=== PATIENT | male | born 1975 | race Caucasian/White ===

== ENCOUNTER 2020-06-08 17:32 | Emergency (ER) | payer BC, SELFPAY ==
--- NOTE | 2020-06-08 17:36 | XRR_ITS ---
PROCEDURE INFORMATION: Exam: XR Chest, 1 View Exam date and time: 06/08/2020 5:37 PM Age: 45 years old Clinical indication: Fever; Patient HX: Recent knee surgery TECHNIQUE: Imaging protocol: XR of the chest Views: 1 view. COMPARISON: No relevant prior studies available. FINDINGS: Lungs: Unremarkable. No consolidation. Pleural space: Unremarkable. No pleural effusion. No pneumothorax. Heart/Mediastinum: Unremarkable. No cardiomegaly. Bones/joints: Mild scoliotic curvature. XR/XR chest 1V portable [id number] IMPRESSION: Nonacute.
[2020-06-08 17:37] VITALS: BP 110/76; PULSE 95; RESP 18; TEMP 37.2; O2SAT 93; BMI 36.5
--- NOTE | 2020-06-08 17:48 | W.ED.ABDPA2 ---
HPI - Abdominal Pain General: Chief Complaint: Nausea/Vomiting/Diarrhea Stated Complaint: NAUSEA, WEAK, S/P KNEE SURGERY X 2 WEEKS Time Seen by Provider: 06/08/20 17:48 History of Present Illness: HPI narrative: Patient is a 45-year-old male who comes to the ED with nausea and fatigue. Approximately 2 weeks ago patient had total right knee replacement surgery. He has had no complications with his right knee and healing and pain is well under control. Patient says for the past 5 days or so he has had no appetite, feels nauseous and fatigued. Reports hardly eating much food at all for the past couple days and whenever he does eat something that makes his nausea worse. He states that he has had normal bowel movements and denies taking any extra narcotic pain meds. He says he has been sleeping a lot over the past couple days and when he gets up and moves around he feels lightheaded. Denies chest pain, fever, chills, shortness of breath or emesis. Patient was put on Eliquis for 30 days right after surgery due to past history of blood clot in right calf back in 1999. Patient says he stopped taking his Eliquis 3 days ago, because he thought it might have been causing his symptoms. Patient says ever since stopping Eliquis he said no change in symptoms. Associated Symptoms: Reports nausea; Denies chills, constipation, diarrhea, dysuria, fever(s), hematochezia, hematuria and vomiting Review of Systems Const: Reports: fatigue; Denies: fever(s) or chills Eyes: Denies: change in vision or eye discomfort ENMT: Denies: throat pain, odynophagia, nasal discharge or nasal congestion Card: Reports: lightheadedness; Denies: chest pain, palpitations, edema, swelling of feet/ankles, dyspnea on exertion or orthopnea Resp: Denies: dyspnea, productive cough or non-productive cough GI: Reports: nausea; Denies: abdominal pain, vomiting, diarrhea, constipation or hematochezia : Denies: flank pain, difficulty urinating, dysuria or hematuria Musc: Denies: neck pain, back pain or extremity swelling Skin/Breast: Denies: rash or new lesions Neuro: Denies: headache(s), numbness in extremities or weakness in extremities Physical Exam Const: COMMON NORMALS: patient oriented x3 and alert GENERAL APPEARANCE: cooperative and comfortable HENMT: COMMON NORMALS: normocephalic HEAD & SCALP: normocephalic MOUTH: moist mucous membranes abnormal (mild dehydration) THROAT: posterior oropharynx normal and uvula midline Eye: COMMON NORMALS: Equal, round and reactive pupils present PUPIL: Yes Equal, round and reactive pupils present Neck/C-Spine: COMMON NORMALS: supple GENERAL: Yes normal visual inspection Resp: COMMON NORMALS: normal respiratory effort, No retractions, No use of accessory muscles and clear to auscultation bilaterally AUSCULTATION: clear to auscultation bilaterally Cardio: COMMON NORMALS: regular rate, regular rhythm, S1 normal heart sound present, S2 normal heart sound present, No gallops present (Cardio), No clicks present (Cardio), No murmurs present (Cardio) and Peripheral pulses 2+ throughout RATE: regular rate RHYTHM: regular rhythm HEART SOUNDS: S1 normal heart sound present and S2 normal heart sound present PERIPHERAL PULSES: Peripheral pulses 2+ throughout GI: COMMON NORMALS: Soft to palpation, non-tender and no masses AUSCULTATION: Yes Hypoactive bowel sounds present PALPATION: Yes Soft to palpation : COMMON NORMALS: Yes no CVA tenderness BLADDER/KIDNEY EXAM: Yes no CVA tenderness Back/Pelvis: COMMON NORMALS: no CVA tenderness Extremity: COMMON NORMALS: no pedal edema NARRATIVE EXTREMITY EXAM: Patient's right knee has surgical incision site from total knee replacement. Surgical site is healing normally and looks really good. No dehiscence, bleeding, erythema, warmth or purulent drainage. GENERAL: Yes normal exam except as noted Neuro: COMMON NORMALS: patient oriented x3 SENSORIUM/ORIENTATION: Yes alert GAIT: Yes Normal gait present Skin: COMMON NORMALS: no rashes or lesions noted GENERAL SKIN EXAM: no rashes or lesions noted WOUNDS: Yes surgical site (Right knee-surgical site is healing well with no drainage, bleeding or erythema seen.) Course Reevaluation(s): Reevaluation #1: Patient was given 2 L of IV fluid and Zofran to help with nausea and lightheaded symptoms. Patient's nausea improved greatly and he was able to get up and stand up without having any lightheadedness. Patient is feeling better and ready to be discharged. Time: 20:34 Vital Signs: Vital signs: Vital Signs Temperature 98.9 F 06/08/20 17:37 Pulse Rate 83 06/08/20 20:43 Respiratory Rate 18 06/08/20 20:43 Blood Pressure 138/82 06/08/20 20:43 Pulse Oximetry 94 06/08/20 20:43 MDM - Abdominal Pain MDM Narrative: Medical decision making narrative: Patient is a 45-year-old male who comes to the ED with postural lightheadedness, nausea, fatigue and decreased appetite. Patient is approximately 2 weeks postop of total right knee replacement. He is having no problems with right knee. Healing and range of motion is doing well. No erythema warmth or signs of infection right knee surgical site. Patient's mucous membranes were dry and he does a decreased oral intake for the past couple days due to the nausea. Patient states he has had normal bowel movements and denies any constipation. CBC and CMP were unremarkable. Chest x-ray and KUB showed no acute findings. EKG showed normal sinus rhythm, [address] segment elevation or depression seen. Orthostatics were normal. Patient was given 2 L of fluid and Zofran and his nausea symptoms greatly improved and he was able to eat Jell-O here on the unit without any problems. Patient was also able to stand up and says his lightheadedness had improved greatly and did not feel off balance when upright. Patient diagnosed with dehydration and postural lightheadedness due to dehydration. Return to ED precautions given. He was sent home with a prescription for Zofran to help with any nausea. Drink plenty of fluids and stay hydrated. Follow-up with PCP in 7 to 10 days. Return to ED precautions given. Patient understood and agreed with plan. Medical Records: Attestation: I reviewed the patient's medical records. Lab Data: Attestation: I reviewed the patient's lab results. Labs: Lab Results 06/08/20 06/08/20 06/08/20 Range/Units 18:07 18:07 19:05 WBC 3.3 L (4.0-10.0) 10^3/ uL RBC 4.13 (4.1-5.3) 10^6/u L Hgb 12.1 (11.7-16.6) g/dL Hct 37.4 L (42.0-52.0) % MCV 90.6 (80-94) fL MCH 29.3 (28.0-34.0) pg MCHC 32.4 (30.0-36.0) g/dL RDW 12.9 (12.1-15.1) % Plt Count 384 (130-400) 10^3/c mm MPV 8.9 (7.4-10.4) fL Neut % (Auto) 41.5 % Lymph % (Auto) 50.3 % [place] % (Auto) 7.6 % Eos % (Auto) 0.0 % Baso % (Auto) 0.3 % Neut # (Auto) 1.37 L (1.8-7.7) 10^3/u L Lymph # (Auto) 1.7 (0.8-4.8) 10^3/u L [place] # (Auto) 0.3 (0.2-0.9) 10^3/u L Eos # (Auto) 0.0 (0.0-0.8) 10^3/u L Baso # (Auto) 0.0 (0.0-0.1) 10^3/u L Nucleated RBC % (a uto) 0 % Nucleated RBCs # 0.0 /100WBC Sodium 133 L (136-145) mmol/L Potassium 4.3 (3.5-5.1) mmol/L Chloride 97 L (98-107) mmol/L Carbon Dioxide 24 (22-29) mmol/L Anion Gap 16.3 (5-19) BUN 9 (6-20) mg/dL Creatinine 0.8 (0.7-1.2) mg/dL GFR Calculation 104.1 (90-130) mL/min Glucose 134 H (65-115) mg/dL Calculated Osmolal ity 277 L (285-295) mOsm/k g Calcium 8.8 (8.5-10.5) mg/dL Total Bilirubin 0.5 (0.15-1.2) mg/dL AST 52 H (0-40) U/L ALT 50 H (0-41) U/L Alkaline Phosphata se 176 H (40-130) IU/L Total Protein 7.1 (6.6-8.7) g/dL Albumin 3.6 (3.5-5.2) g/dL Globulin 3.5 (1.3-4.6) g/dL Urine Color Yellow (Yellow) Urine Appearance Clear (CLEAR) Urine pH 6 (5-7) Ur Specific Gravit y 1.010 (1.005-1.030) Urine Protein Neg (Negative) Urine Glucose (UA) Norm (Normal) Urine Ketones Negative (Negative) Urine Blood Neg (Negative) Urine Nitrate Negative (Negative) Urine Bilirubin Neg (Negative) Urine Urobilinogen Norm (Negative) mg/dL Ur Leukocyte Brea ase Negative (Negative) Imaging Data ^: CXR: Attestation: I personally reviewed and interpreted this imaging study as follows: Radiologist's impression: [place] [address] XRay Report Signed Patient: Tomi Newman Unit #: [id number] : 1975 Age/Sex: 45 / M ADM Date: 06/08/20 Loc: ER Room/Bed: Attending Dr: Ordering Provider/Ordering MD: Haris Alvarez MD Date of Service: 06/08/20 Procedure(s): XR chest 1V portable [id number] Accession Number(s): [id number] Report Number: [id number] PROCEDURE INFORMATION: Exam: XR Chest, 1 View Exam date and time: 06/08/2020 5:37 PM Age: 45 years old Clinical indication: Fever; Patient HX: Recent knee surgery TECHNIQUE: Imaging protocol: XR of the chest Views: 1 view. COMPARISON: No relevant prior studies available. FINDINGS: Lungs: Unremarkable. No consolidation. Pleural space: Unremarkable. No pleural effusion. No pneumothorax. Heart/Mediastinum: Unremarkable. No cardiomegaly. Bones/joints: Mild scoliotic curvature. XR/XR chest 1V portable [id number] IMPRESSION: Nonacute. Dictated By: Bj Bridges Signed By: Bj Bridges Signed Date/Time: 06/08/201909 DD/ 07 KUB: Attestation: I personally reviewed and interpreted this imaging study as follows: Radiologist's impression: [address] [address] XRay Report Signed Patient: Tomi Newman Unit #: [id number] : 1975 Age/Sex: 45 / M ADM Date: 06/08/20 Loc: ER Room/Bed: Attending Dr: Ordering Provider/Ordering MD: Fuentes Nair Date of Service: 06/08/20 Procedure(s): XR KUB portable [id number] Accession Number(s): [id number] Report Number: [id number] PROCEDURE INFORMATION: Exam: XR Abdomen, 1 View Exam date and time: 06/08/2020 6:06 PM Age: 45 years old Clinical indication: Nausea; Patient HX: Recent knee surgery TECHNIQUE: Imaging protocol: XR of the abdomen. Views: Frontal supine view of the abdomen. 1 View. COMPARISON: No relevant prior studies available. FINDINGS: Gastrointestinal tract: Normal. No bowel dilation. Bones/joints: Mild scoliotic curvature. Age-appropriate degenerative disease. XR/XR KUB portable [id number] IMPRESSION: Nonacute. Dictated By: Bj Bridges Signed By: jB Bridges Signed Date/Time: 06/08/201909 DD/ 08 EKG Data ^: EKG 1: Attestation: I personally reviewed and interpreted this EKG as follows: EKG interpretation date: 06/08/20 EKG interpretation time: 19:17 Interpretation: Normal sinus rhythm, 84 bpm, no ST segment elevation or depression seen. Discharge Plan Discharge Patient Disposition: Home Clinical Impression: Dehydration determined by examination, Postural lightheadedness Condition: Stable Prescriptions: New ondansetron 4 mg tablet,disintegrating 4 mg PO Q8H Qty: 20 RF: 0 Discharge Orders: Discharge Order (Routine); Ordered 06/08/20 Ordered By: Fuentes Nair Referrals: Gautam Perez DO [Primary Care Provider] - Discharge Diet: Advance as tolerated and Clear Liquid Discharge Activity: Increase activity as tolerated and Use walker/crutches as instructed Activity Restrictions/Additional Instructions: Follow-up with medical provider as directed. Take medications as prescribed. Drink plenty of fluids and stay hydrated. Take the Zofran before eating to help with nausea. Return to the ER or your medical provider if condition worsens. Please read and understand discharge instructions. If any questions, please ask. Discharge Date/Time: 06/08/20 20:44 Coding Level of Care Code ED Freight And Passenger Agent for Chg Fwd Exam Comprehensive
--- NOTE | 2020-06-08 18:05 | XRR_ITS ---
PROCEDURE INFORMATION: Exam: XR Abdomen, 1 View Exam date and time: 06/08/2020 6:06 PM Age: 45 years old Clinical indication: Nausea; Patient HX: Recent knee surgery TECHNIQUE: Imaging protocol: XR of the abdomen. Views: Frontal supine view of the abdomen. 1 View. COMPARISON: No relevant prior studies available. FINDINGS: Gastrointestinal tract: Normal. No bowel dilation. Bones/joints: Mild scoliotic curvature. Age-appropriate degenerative disease. XR/XR KUB portable [id number] IMPRESSION: Nonacute.
[2020-06-08] MEDS: sodium chloride 0.9% 1,000 ML 999 ML IV ×2 (18:10→19:26)
[2020-06-08] MEDS: ondansetron 2 mg/ML SDV 2 mL 4 MG IVP ×2 (18:10→20:22)
[2020-06-08 18:13] LABS: Basophils % 0.3 %; Hematocrit 37.4 % (42.0-52.0); Hemoglobin 12.1 g/dL (11.7-16.6); Lymphocytes # 1.7 10^3/uL (0.8-4.8); Lymphocytes % 50.3 %; Mean Corpuscular HGB Conc 32.4 g/dL (30.0-36.0); Mean Corpuscular Hemoglobin 29.3 pg (28.0-34.0); Mean Corpuscular Volume 90.6 fL (80-94); Mean Platelet Volume 8.9 fL (7.4-10.4); Monocytes # 0.3 10^3/uL (0.2-0.9); Monocytes % 7.6 %; Neutrophils # 1.37 10^3/uL (1.8-7.7); Neutrophils % 41.5 %; Nucleated Red Blood Cells % 0 %; Platelet Count 384 10^3/cmm (130-400); Red Blood Count 4.13 10^6/uL (4.1-5.3); Red Cell Distribution Width 12.9 % (12.1-15.1); White Blood Count 3.3 10^3/uL (4.0-10.0)
--- NOTE | 2020-06-08 18:13 | ECG_ITS ---
[facility] Test Date: 2020-06-08 Pat Name: Tomi Newman Department: Room: Gender: Male Customer Support Technician: : 1975 Requested By: Fuentes Nair Order Number: [id number] Morse MD: Art Escamilla M.D. Measurements Intervals [place] Rate: 84 P: 46 MO: 145 QRS: 37 QRSD: 98 T: 29 QT: 367 QTc: 435 Interpretive Statements SINUS RHYTHM INCOMPLETE RIGHT BUNDLE BRANCH BLOCK [90+ ms QRS DURATION, TERMINAL R IN V1/V2, 40+ ms S IN I/aVL/V4/V5/V6] No previous ECG available for comparison Electronically Signed On 06-09-2020 21:36:24 CDT by Art Escamilla M.D. [id number] f
[2020-06-08 18:30] LABS: Alanine Aminotransferase 50 U/L (0-41); Albumin Level 3.6 g/dL (3.5-5.2); Alkaline Phosphatase 176 IU/L (40-130); Anion Gap 16.3 (5-19); Aspartate Amino Transferase 52 U/L (0-40); Blood Urea Nitrogen 9 mg/dL (6-20); Calcium 8.8 mg/dL (8.5-10.5); Carbon Dioxide 24 mmol/L (22-29); Chloride 97 mmol/L (98-107); Globulin 3.5 g/dL (1.3-4.6); Glomerular Filtration Rate 104.1 mL/min (90-130); Glucose 134 mg/dL (65-115); Osmolality Calculated 277 mOsm/kg (285-295); Potassium 4.3 mmol/L (3.5-5.1); Sodium 133 mmol/L (136-145); Total Bilirubin 0.5 mg/dL (0.15-1.2); Total Protein 7.1 g/dL (6.6-8.7)
[2020-06-08 19:17] LABS: Add Urine Microscopic? NO
[2020-06-08 19:31] LABS: Bilirubin Urine Neg (Negative); Blood Urine Neg (Negative); Glucose Urine UA Norm (Normal); Ketones Urine Negative (Negative); Leukocyte Esterase Urine Negative (Negative); Nitrate Urine Negative (Negative); Protein Urine Neg (Negative); Urine Appearance Clear (CLEAR); Urine Color Yellow (Yellow); Urobilinogen Urine Norm (Negative); pH Urine 6 (5-7)
[2020-06-08 20:28] VITALS: BP 130/74; BP 132/80; BP 138/82; PULSE 103; PULSE 109; PULSE 88; PULSE 93; RESP 18; O2SAT 94
[2020-06-08 20:43] VITALS: BP 138/82; PULSE 83; RESP 18; O2SAT 94
== END 2020-06-08 20:44 | disposition home or self-care (01) ==
PROVIDERS: Emergency Medicine; Emergency Provider Physician Assistant; Family Provider Family Medicine; PCP Family Medicine
DX: E86.0 Dehydration (principal); R42 Dizziness and giddiness
CPT/HCPCS: 12345; 71045; 74018; 80053; 81003; 85025; 93005; 96361; 96374; 96375; 96376; 99284; J2405; J7030

== ENCOUNTER → 2022-07-27 07:57 | Outpatient (BNVA) | payer BC, SELFPAY | PROVIDERS: Family Provider Family Medicine; PCP Family Medicine; Visit Provider Family Medicine | DX: Z00.00 Encounter for general adult medical examination without abnormal findings (principal); M15.9 Polyosteoarthritis, unspecified; K21.9 Gastro-esophageal reflux disease without esophagitis; I10 Essential (primary) hypertension | CPT/HCPCS: 80053; 80061; 83036; 84550 ==

== ENCOUNTER → 2022-08-24 13:58 | Outpatient (BNVA) | payer BC, SELFPAY | PROVIDERS: Family Provider Family Medicine; PCP Family Medicine; Visit Provider Podiatrist Foot & Ankle Surgery | DX: M20.31 Hallux varus (acquired), right foot (principal); M25.871 Other specified joint disorders, right ankle and foot; M77.41 Metatarsalgia, right foot | CPT/HCPCS: 73630 ==

== ENCOUNTER 2022-12-09 13:19 | Outpatient (CLI) | payer BC, SELFPAY ==
--- NOTE | 2022-12-09 13:24 | XRR_ITS ---
PROCEDURE INFORMATION: Exam: XR Bilateral Hips Exam date and time: 12/09/2022 1:39 PM Age: 47 years old Clinical indication: Hip pain; Right hip; Additional info: M25.559 - pain in unspecified hip TECHNIQUE: Imaging protocol: Radiologic exam of the bilateral hips. Views: 2 views of hips with pelvis when performed. COMPARISON: CR XR KUB portable [id number] 06/08/2020 6:27 PM FINDINGS: Bones/joints: Alignment is normal bilaterally. Joint spaces are preserved bilaterally. No osteophytes. No acute fracture. The visible portion of the pelvis and sacrum is intact. Soft tissues: Visible soft tissues are unremarkable. XR/XR hip BI 3-4V wo/w pel [id number] IMPRESSION: No pathologic findings.
== END 2022-12-09 13:20 | disposition home or self-care (01) ==
LOC: RAD 13:20
PROVIDERS: PCP Family Medicine; Visit Provider Family Medicine
DX: M25.551 Pain in right hip (principal); M15.9 Polyosteoarthritis, unspecified; M10.9 Gout, unspecified
CPT/HCPCS: 73522

== ENCOUNTER → 2023-01-03 08:41 | Outpatient (BNVA) | payer BC, SELFPAY | PROVIDERS: PCP Family Medicine; Visit Provider Family Medicine | DX: M10.079 Idiopathic gout, unspecified ankle and foot (principal); M25.569 Pain in unspecified knee; M25.559 Pain in unspecified hip; Z00.00 Encounter for general adult medical examination without abnormal findings; M15.9 Polyosteoarthritis, unspecified | CPT/HCPCS: 80053; 80061; 83036; 84550; 85025; 85651; 86140; 86160; 86162; 86235; 86255; 86376; 86431 ==

== ENCOUNTER 2023-01-13 06:10 | Emergency (ER) | payer BC, SELFPAY ==
--- NOTE | 2023-01-13 06:12 | W.ED.LOWEXIN ---
HPI - Extremity Injury (Lower) General: Chief Complaint: Wound/Laceration Stated Complaint: right foot lac Time Seen by Provider: 01/13/23 06:11 History of Present Illness: 47-year-old gentleman presenting to the emergency department due to toe laceration. He reports being outside in the dark taking out the garbage last night wearing flip-flops and he ate his foot on a piece of metal causing a laceration of the bottom of his foot. He washed this out with hydrogen peroxide however noticed today that it was deeper than he thought and decided to come in. Denies history of frequent skin infections or diabetes. No other specific changes in health, exacerbating, or alleviating factors identified. Injury: Right: toes (Base plantar fifth) Type of Injury: blunt Severity: moderate Exacerbating factors: weight bearing Context: walking Associated symptoms: Reports no associated symptoms Other symptoms: none Review of Systems General: Reports: 10 or more systems reviewed and unremarkable except in HPI and below PFSH ED PFSH: Medical History Generalized osteoarthritis GERD (gastroesophageal reflux disease) Gout Surgical History Hx of knee surgery Social History Alcohol intake: current Substance/Drug Use: never Physical Exam Const: COMMON NORMALS: alert GENERAL APPEARANCE: cooperative and well developed HENMT: COMMON NORMALS: normocephalic and atraumatic HEAD & SCALP: normocephalic and atraumatic Eye: COMMON NORMALS: conjunctivae normal CONJUNCTIVA: Yes conjunctivae normal SCLERA: sclerae normal Neck/C-Spine: COMMON NORMALS: supple GENERAL: Yes trachea midline Resp: COMMON NORMALS: clear to auscultation bilaterally EFFORT & INSPECTION: Yes able to speak in complete sentences AUSCULTATION: clear to auscultation bilaterally Cardio: COMMON NORMALS: regular rate and regular rhythm RATE: regular rate RHYTHM: regular rhythm Extremity: NARRATIVE EXTREMITY EXAM: Laceration and partial distal skin flap which appears devascularized to the base of the fifth toe GENERAL: Yes normal exam except as noted and No edema Neuro: COMMON NORMALS: moves all extremities SENSORIUM/ORIENTATION: Yes alert and No Orientation impaired Psych: COMMON NORMALS: mental status grossly normal and Normal thought process present THOUGHT PROCESS: Normal thought process present Procedures Laceration Laceration 1: Site: lower extremity Side (If applicable): right Size (cm): 1.5 Description: flap Depth: simple, single layer Local Anesthetic: lidocaine 1% Amount of anesthesia used (mL): 3 Pre-repair: wound explored, irrigated extensively and deep structures intact Skin layer closed with: vicryl Size (cm): 5-0 Number of sutures: 4 Technique: simple, interrupted Course Vital Signs: Vital signs: Vital Signs Temperature 98.2 F 01/13/23 06:31 Pulse Rate 82 01/13/23 07:51 Respiratory Rate 18 01/13/23 06:45 Blood Pressure 174/114 01/13/23 07:51 Pulse Oximetry 93 01/13/23 07:51 Oxygen Delivery Me thod Room Air 01/13/23 06:45 MDM - Extremity Injury (Lower) Medical Decision Making 47-year-old gentleman presenting due to foot laceration. Unfortunately the laceration happened last night however given location and overall clinical appearance I believe that laceration repair must be performed. CMS intact. X-ray negative for fracture. Laceration repaired. Patient treated with analgesia, Tdap updated, will be treated with antibiotics given duration of open wound prior to closure. The results of ED evaluation were discussed with the patient including prescriptions and/or symptomatic cares (if applicable) including appropriate and responsible use, followup plan, and return precautions. The patient verbalized understanding and felt safe for discharge. Medical Records I reviewed the patient's medical records. Lab Data I reviewed the patient's lab results. Radiology Impressions Toe X-Ray 01/13/23 06:33 Impression: Negative for fracture or dislocation of the right fifth toe Discharge Plan Discharge Patient Disposition: Home Clinical Impression: Laceration of toe of right foot Condition: Stable Prescriptions: No Action omeprazole 20 mg capsule,delayed release(DR/EC) 20 mg PO DAILY prednisone 20 mg tablet See Rx Instructions .Route .COMPLEX Qty: 14 0RF Rx Instructions: 2 tabs PO daily for 4 days, then 1 tab PO daily X 4 days, then 0.5 tab daily for 4 days, then stop; celecoxib 200 mg capsule 200 mg PO DAILY Qty: 90 3RF loratadine 10 mg tablet 10 mg PO DAILY Qty: 90 3RF hydrocodone-acetaminophen 5-325 mg tablet See Rx Instructions PO BID PRN (Reason: pain) 30 Days Qty: 60 0RF Rx Instructions: 1-2 tablets orally twice a day PRN; metaxalone 800 mg tablet 800 mg PO TID Qty: 90 3RF Discharge Orders: Discharge ED (Routine); Ordered 01/13/23 Ordered By: Sukhdev Sena Referrals: Gautam Perez, DO [Primary Care Provider] - Discharge Diet: Usual diet Discharge Activity: Limit activity as instructed Patient Instructions: Laceration (ED), Care For Your Absorbable Stitches (ED), Opioid Safety Activity Restrictions/Additional Instructions: Thank you for visiting the emergency department. You were seen and evaluated for laceration to the toe. This was repaired with absorbable sutures. Please keep the area clean and dry as discussed. Watch for signs of infection. Please follow-up with your primary care provider. You may use [id number] medications such as acetaminophen and ibuprofen for pain however please do not exceed the daily recommended dosage as listed on the packaging and please keep in mind that many namebrand medications contain the same active ingredients. Please avoid these medications if previously instructed to do so by another physician due to other underlying medical condition. Return to the emergency department for signs of infection or anything else that you are concerned about and feel needs emergency department evaluation. Coding Level of Care Code ED Injection Maintenance Technician for Minnie Mckenzie
[2023-01-13 06:31] VITALS: BP 180/112; PULSE 84; RESP 16; TEMP 36.8; O2SAT 94; BMI 43.0
--- NOTE | 2023-01-13 06:33 | XR_ITS ---
WS: [id number] Toes of the right foot, 3 views, 01/13/2023 Clinical Data: 5th toe, blunt trauma with laceration at base Comparison: Bilateral feet, 08/24/2022 Findings: There are no fractures or dislocations. The soft tissues are normal. Specifically the right fifth toe shows no bony abnormalities. There may be a small laceration at the plantar surface overlying the ri ght fifth toe. XR/XR toe RT min 2V [id number] Impression: Negative for fracture or dislocation of the right fifth toe
[2023-01-13] MEDS: tetanus-dipt-pertussis 0.5 mL SDV IM (06:40)
[2023-01-13] MEDS: HYDROcodone-acetaminophen 5-325 mg Tablet 1 TAB PO (06:42)
[2023-01-13 06:45] VITALS: BP 168/100; PULSE 80; RESP 18; O2SAT 95
[2023-01-13 07:14] VITALS: BP 174/114; PULSE 82; O2SAT 93
[2023-01-13] MEDS: cefTRIAXone 1,000 MG in water for injection-sterile 2.1 ML 2.1 MG IM (07:43)
[2023-01-13 07:51] VITALS: BP 174/114; PULSE 82; O2SAT 93
== END 2023-01-13 07:54 | disposition home or self-care (01) ==
PROVIDERS: Emergency Provider Emergency Medicine; PCP Family Medicine
DX: S91.114A Laceration without foreign body of right lesser toe(s) without damage to nail, initial encounter (principal); W26.8XXA Contact with other sharp object(s), not elsewhere classified, initial encounter; Z23 Encounter for immunization
CPT/HCPCS: 12001; 73660; 90471; 90715; 96372; 99284; J0696

== ENCOUNTER → 2023-04-04 08:38 | Outpatient (BNVA) | payer BC, SELFPAY | PROVIDERS: PCP Family Medicine; Visit Provider Family Medicine | DX: R73.03 Prediabetes (principal); Z00.00 Encounter for general adult medical examination without abnormal findings | CPT/HCPCS: 80053; 83036 ==

== ENCOUNTER → 2023-05-23 10:35 | Outpatient (BNVA) | payer BC, SELFPAY | PROVIDERS: PCP Family Medicine; Referring Provider Family Medicine; Visit Provider Internal Medicine | DX: M35.1 Other overlap syndromes (principal); M10.9 Gout, unspecified; K21.9 Gastro-esophageal reflux disease without esophagitis; M15.9 Polyosteoarthritis, unspecified; R76.8 Other specified abnormal immunological findings in serum; R70.0 Elevated erythrocyte sedimentation rate; R74.01 Elevation of levels of liver transaminase levels; R63.5 Abnormal weight gain; L40.9 Psoriasis, unspecified; M47.896 Other spondylosis, lumbar region | CPT/HCPCS: 72100; 72202; 73120 ==

== ENCOUNTER 2023-05-30 08:39 | Outpatient (REF) | payer BC, SELFPAY ==
[2023-05-30 09:26] LABS: Basophils % 0.6 %; Eosinophils # 0.1 10^3/uL (0.0-0.8); Eosinophils % 1.1 %; Lymphocytes # 1.6 10^3/uL (0.8-4.8); Lymphocytes % 24.3 %; Mean Corpuscular HGB Conc 33.3 g/dL (30-55); Mean Corpuscular Hemoglobin 31.7 pg (27-33); Mean Corpuscular Volume 95.2 fl (82-101); Mean Platelet Volume 9.5 fL (7.4-10.4); Monocytes # 0.5 10^3/uL (0.2-0.9); Monocytes % 7.3 %; Neutrophils # 4.29 10^3/uL (1.8-7.7); Neutrophils % 66.2 %; Nucleated Red Blood Cells % 0 %; Platelet Count 301 10^3/cmm (157-399); Red Blood Count 5.04 10^6/uL (3.85-5.65); Red Cell Distribution Width 12.8 % (12.1-15.1); White Blood Count 6.47 10^3/uL (3.29-11.43)
[2023-05-30 09:55] LABS: Alanine Aminotransferase 71 U/L (0-41); Albumin Level 4.3 g/dL (3.5-5.2); Alkaline Phosphatase 119 U/L (40-130); Anion Gap 13.8 (5-19); Aspartate Amino Transferase 55 U/L (0-40); Blood Urea Nitrogen 15 mg/dL (6-20); C Reactive Protein 12.3 mg/L (0.0-4.9); Calcium 9.1 mg/dL (8.5-10.5); Carbon Dioxide 24 mmol/L (22-29); Chloride 96 mmol/L (98-107); Creatine Phosphokinase 108 U/L (39-308); Globulin 3.6 g/dL (1.3-4.6); Glomerular Filtration Rate 89.7 mL/min (90-130); Glucose 111 mg/dL (65-115); Osmolality Calculated 272 mOsm/kg (285-295); Phosphorus 3.1 mg/dL (2.5-4.5); Potassium 3.8 mmol/L (3.5-5.1); Sodium 130 mmol/L (136-145); Thyroid Stimulating Hormone 2.17 uIU/mL (0.27-4.20); Total Bilirubin 0.7 mg/dL (0.15-1.2); Total Protein 7.9 g/dL (6.6-8.7); Uric Acid 6.4 mg/dL (3.4-7.0)
[2023-05-30 09:56] LABS: Erythrocyte Sedimentation Rate 34 mm/hr (0-10)
[2023-05-30 11:47] LABS: Hepatitis B Core AB, Total Non-Reactive (Nonreactive); Hepatitis B Surface Antigen Non-Reactive (Nonreactive)
[2023-05-30 12:36] LABS: Free T4 Free Thyroxine 1.11 ng/dL (0.82-1.77); Hepatitis C Virus Antibody Non-Reactive (Nonreactive)
[2023-05-31 15:54] LABS: Beef (27) IgE 2.37 kU/L; Beef Class 2; Lamb (F88) IgE 1.03 kU/L; Lamb Class 2; Pork (F26) IgE 1.28 kU/L; Pork Class 2
[2023-05-31 17:44] LABS: Cyclic Citrullinated Peptide <16 UNITS
[2023-06-01 15:44] LABS: Immunoglobulin A 296 mg/dL (47-310)
[2023-06-01 16:05] LABS: Quantiferon Nil 0.03 IU/mL; Quantiferon Plus TB1 0.01 IU/mL; Quantiferon Plus TB2 0.02 IU/mL; Quantiferon TB Gold NEGATIVE (NEGATIVE)
[2023-06-01 18:05] LABS: Galactose-alpha-1,3 IgE 3.63 kU/L (<0.10)
[2023-06-02 02:04] LABS: Gliadin Ab.IgA <1.0 U/mL; Gliadin Ab.IgG <1.0 U/mL
[2023-06-02 03:19] LABS: Tissue Transglutaminase IgA Ab <1.0 U/mL; Tissue transglutaminase Ab.IgG 2.1 U/mL
[2023-06-11 18:59] LABS: 14.3.3 ETA Protein <0.2 ng/mL (<0.2)
== END 2023-05-30 08:40 | disposition home or self-care (01) ==
LOC: RAD 08:39
PROVIDERS: PCP Family Medicine; Visit Provider Internal Medicine
DX: M15.9 Polyosteoarthritis, unspecified (principal); M35.1 Other overlap syndromes; M10.9 Gout, unspecified; K21.9 Gastro-esophageal reflux disease without esophagitis
CPT/HCPCS: 36415; 80053; 82550; 82784; 83516; 83520; 83735; 84100; 84439; 84443; 84550; 85025; 85651; 86003; 86008; 86140; 86200; 86480; 86704; 86803; 87340

== ENCOUNTER 2023-06-07 06:32 | Outpatient (CLI) | payer BC, SELFPAY ==
--- NOTE | 2023-06-07 | US_ITS ---
WS: [id number] RIGHT UPPER QUADRANT ULTRASOUND HISTORY: M15.9 - Polyosteoarthritis, unspecified COMPARISON: None available. Quality of this examination is limited. Liver: 20.0 cm in length. Enlarged liver. The entire liver is not imaged well. There is marked attenu ation from severe hepatic steatosis. Mass would be difficult to exclude. Changes of hepatic steatosis with areas of sparing throughout the liver. Portal Vein: Normal hepatopetal flow with monophasic waveform. Gallbladder: Normally distended gallbladder with no stones or wall thickening. CBD: 0.4 cm Pancreas: Not visualized. Right kidney: 13.0 cm in length. Normal size. Limited evaluation of the architecture. No mass identif ied and no obstruction as visualized. Aorta and IVC: Poorly visualized. No ascites. IMPRESSION: 1. Technically very difficult RIGHT upper quadrant ultrasound. 2. Enlarged liver with severe hepatic steatosis. The entire liver is not well visualized. 3. No gallstones identified.
== END 2023-06-07 06:33 | disposition home or self-care (01) ==
LOC: RAD 06:33
PROVIDERS: PCP Family Medicine; Visit Provider Internal Medicine
DX: M15.9 Polyosteoarthritis, unspecified (principal); R16.0 Hepatomegaly, not elsewhere classified; K76.0 Fatty (change of) liver, not elsewhere classified
CPT/HCPCS: 76705

== ENCOUNTER → 2024-06-11 07:32 | Outpatient (BNVA) | payer BC, SELFPAY | PROVIDERS: PCP Family Medicine; Visit Provider Family Medicine | DX: I10 Essential (primary) hypertension (principal); R73.03 Prediabetes; E66.9 Obesity, unspecified; K76.0 Fatty (change of) liver, not elsewhere classified; M10.079 Idiopathic gout, unspecified ankle and foot; M19.90 Unspecified osteoarthritis, unspecified site | CPT/HCPCS: 80053; 80061; 83036; 84550; 85025 ==

== ENCOUNTER → 2025-03-18 11:15 | Outpatient (BNVA) | payer BC, SELFPAY | PROVIDERS: PCP Family Medicine; Visit Provider Podiatrist Foot & Ankle Surgery | DX: M25.572 Pain in left ankle and joints of left foot (principal); M92.62 Juvenile osteochondrosis of tarsus, left ankle; M76.62 Achilles tendinitis, left leg | CPT/HCPCS: 73610 ==

== ENCOUNTER 2025-03-29 07:43 | Outpatient (CLI) | payer BC, SELFPAY ==
--- NOTE | 2025-03-29 08:00 | MRR_ITS ---
PROCEDURE INFORMATION: Exam: MR Left Lower Extremity Joint Without Contrast; Ankle Exam date and time: 03/29/2025 7:55 AM Age: 49 years old Clinical indication: Injury or trauma; Other: Twisted ankle; Sprain or strain; Left; Injury details: Lt ankle pain up back of ankle that wraps around. Twisted; Additional info: -eval rearfoot TECHNIQUE: Imaging protocol: Magnetic resonance imaging of the left lower extremity without contrast. Exam focused on the ankle. COMPARISON: CR XR ankle LT min 3V* [id number] 03/18/2025 11:23 AM FINDINGS: Bones/joints: Normal osseous alignment. No acute fracture. No significant joint effusion. The articular cartilage appears intact. LIGAMENTS: Distal tibiofibular syndesmosis: Partial ossification of the syndesmosis between the distal tibia and fibula is identified and appears benign. Anterior talofibular ligament: Unremarkable. No tear. Posterior talofibular ligament: Unremarkable. No tear. Calcaneofibular ligament: Unremarkable. No tear. Deltoid ligament complex: Unremarkable. No tear. TENDONS: Flexor tendons of foot: Mild abnormal fluid in the flexor digitorum longus and flexor hallucis longus tendon sheaths is noted. Tibialis posterior tendon: Mild abnormal fluid in the tibialis posterior tendon sheath is present. Peroneal tendons: Extensive intrasubstance/longitudinal tearing of the proximal peroneus longus tendon is noted with mild abnormal fluid in the tendon sheath. Mild intrasubstance abnormal increased signal intensity in the peroneus brevis tendon is present, with mild abnormal fluid in the tendon sheath. Extensor tendons of foot: Unremarkable as visualized. Tibialis anterior tendon: Unremarkable as visualized. Achilles tendon: Moderate to high-grade partial-thickness tearing of the distal Achilles tendon is noted, without evidence of a complete tear. Mild edema in the pre Achilles fat pad is present. Tarsal canal (Sinus tarsi): Unremarkable. Normal signal of the fat. Tarsal tunnel: Unremarkable. Soft tissues: Mild subcutaneous edema along the posterior aspect of the ankle is identified. Plantar fascia: Plantar fascia is unremarkable. MR/MR ankle LT wo con* [id number] IMPRESSION: 1. Moderate to high-grade partial tearing of the distal Achilles tendon. 2. Tibialis posterior, flexor digitorum longus and flexor hallucis longus tenosynovitis. 3. Intrasubstance/longitudinal tear of the peroneus longus tendon with mild tenosynovitis. 4. Mild peroneus brevis tendinosis and mild tenosynovitis.
== END 2025-03-29 07:44 | disposition home or self-care (01) ==
LOC: RAD 07:44
PROVIDERS: PCP Family Medicine; Visit Provider Podiatrist Foot & Ankle Surgery
DX: M92.62 Juvenile osteochondrosis of tarsus, left ankle (principal); M76.62 Achilles tendinitis, left leg; M65.872 Other synovitis and tenosynovitis, left ankle and foot; S86.012A Strain of left Achilles tendon, initial encounter; X58.XXXA Exposure to other specified factors, initial encounter
CPT/HCPCS: 73721